=== PATIENT | male | born 1950 | race Hispanic/Latino ===

== ENCOUNTER → 2022-02-18 | Outpatient (CLI) | payer MEDICARE | END | disposition home or self-care (01) | LOC: RAH 09:16 | PROVIDERS: ATTEND Internal Medicine | DX: K74.60 Unspecified cirrhosis of liver (principal); I81 Portal vein thrombosis; R18.8 Other ascites; N28.89 Other specified disorders of kidney and ureter | CPT/HCPCS: 76700 ==

== ENCOUNTER 2022-03-01 10:24 | Inpatient (IN) | payer MEDICARE ==
[~2022-03-01] VITALS: Ht 157.5 cm; Wt 50.4 kg
[2022-03-01 10:52] LABS: BASOPHILS % (AUTO) 0.6 % (0.0-5.0); EOSINOPHILS % (AUTO) 1.6 % (0.0-8.0); HEMATOCRIT 29.7 % (42-54); MEAN CORPUSCULAR HEMOGLOBIN 31.5 pg (27.0-33.0); MONOCYTES % (AUTO) 7.4 % (3.0-13.0); NEUTROPHILS % (AUTO) 76.8 % (40.0-77.0); PLATELET COUNT (AUTO) 171 K/uL (130-400); RED CELL DISTRIBUTION WIDTH 13.6 % (11.0-15.5)
[2022-03-01 11:00] LABS: POTASSIUM 4.1 mmol/L (3.5-5.1)
[2022-03-01 11:02] LABS: INR 1.1 (0.85-1.15); PROTHROMBIN TIME 11.9 SEC (9.6-11.6)
[2022-03-01 11:05] LABS: ALBUMIN 2.3 g/dL (3.5-5.0); TOTAL PROTEIN, SERUM 6.7 g/dL (6.0-8.3)
[2022-03-01] MEDS ORDERED: 0.9% NACL 500ML IV.SOLN 500 ML IV ONE ×2 (12:00→15:30)
[2022-03-01 12:59] LABS: APPEARANCE,URINE CLEAR (CLEAR); BILIRUBIN,URINE NEGATIVE (NEGATIVE); COLOR,URINE YELLOW (YELLOW); GLUCOSE, URINE (UA) NEGATIVE (NEGATIVE); KETONES,URINE NEGATIVE (NEGATIVE); LEUKOCYTE ESTERASE ,URINE 75 Leu/uL (NEGATIVE); NITRATE,URINE NEGATIVE (NEGATIVE); OCCULT BLOOD,URINE NEGATIVE (NEGATIVE); PROTEIN,URINE 10 mg/dL (NEGATIVE); UROBILINOGEN,URINE 0.2 mg/dL (0.2-1.0)
[2022-03-01] MEDS ORDERED: CEFTRIAXONE 1G VIAL ONE (13:31)
[2022-03-01] MEDS ORDERED: CEFTRIAXONE 1G VIAL IVP ONE (14:00)
[2022-03-01 16:04] LABS: CREATININE 6.4 mg/dL (0.5-1.5)
[2022-03-01] MEDS ORDERED: CEFTRIAXONE 1G VIAL IVP SCH (20:30)
[2022-03-01] MEDS ORDERED: ONDANSETRON 4MG INJ IV PRN (20:30)
[2022-03-01 20:33] LABS: CREATININE,URINE RANDOM 116 mg/dL (30-135); SODIUM,URINE RANDOM < 14 mmol/l (40-220)
[2022-03-01] MEDS: FAMOTIDINE 20MG VIAL IV SCH (21:04)
[2022-03-01] MEDS: MIDODRINE HCL 5 MG TABLET PO SCH (21:04)
[2022-03-01 22:15] VITALS: BP 104/85
[2022-03-01] MEDS: ALBUMIN (HUMAN) 25% 50 ML IV SCH (23:15)
[2022-03-02] MEDS ORDERED: LACT10SO9 PO (02:54)
[2022-03-02 03:51] VITALS: BP 118/73
[2022-03-02] MEDS: ALBUMIN (HUMAN) 25% 50 ML IV SCH ×2 (05:54→14:20)
[2022-03-02 06:02] LABS: BASOPHILS % (AUTO) 0.8 % (0.0-5.0); EOSINOPHILS % (AUTO) 2.1 % (0.0-8.0); LYMPHOCYTES % (AUTO) 22.8 % (21.0-51.0); MEAN CORPUSCULAR HEMOGLOBIN 31.7 pg (27.0-33.0); MEAN CORPUSCULAR VOLUME 90.6 fL (79-99); MONOCYTES % (AUTO) 10.7 % (3.0-13.0); NEUTROPHILS % (AUTO) 63.3 % (40.0-77.0); PLATELET COUNT (AUTO) 173 K/uL (130-400); RED BLOOD CELL COUNT(AUTO) 2.87 MIL/uL (4.50-6.20); RED CELL DISTRIBUTION WIDTH 13.5 % (11.0-15.5); WHITE BLOOD COUNT (AUTO) 8.6 K/uL (4.8-10.8)
[2022-03-02 06:18] LABS: ALBUMIN 2.1 g/dL (3.5-5.0); TOTAL PROTEIN, SERUM 5.8 g/dL (6.0-8.3); URIC ACID 14.4 mg/dL (2.6-7.2)
[2022-03-02 08:00] VITALS: BP 91/64
[2022-03-02] MEDS: FAMOTIDINE 20MG VIAL IV SCH (09:21)
[2022-03-02] MEDS: MIDODRINE HCL 5 MG TABLET PO SCH ×2 (09:21→14:20)
[2022-03-02 11:53] VITALS: BP 102/66
[2022-03-02 16:00] VITALS: BP 97/64
== END 2022-03-02 19:10 | disposition home or self-care (01) | DRG 314 ==
LOC: EDH 10:24 → EDHIP 16:51 → OBSVTOIN 20:21 → 3BH 22:18
PROVIDERS: ADMIT Internal Medicine Nephrology; ATTEND Internal Medicine Nephrology
DX: I95.9 Hypotension, unspecified (principal); N18.6 End stage renal disease; N39.0 Urinary tract infection, site not specified; N17.9 Acute kidney failure, unspecified; E87.1 Hypo-osmolality and hyponatremia; E87.20 Acidosis, unspecified; K70.31 Alcoholic cirrhosis of liver with ascites; E86.0 Dehydration; D64.9 Anemia, unspecified; F10.10 Alcohol abuse, uncomplicated; Z51.5 Encounter for palliative care; Z91.199 Patient's noncompliance with other medical treatment and regimen due to unspecified reason
CPT/HCPCS: 36415; 76700; 80048; 80053; 81001; 82570; 83935; 84100; 84300; 84550; 85025; 85610; 85730; 87088; G0378; J0696; J3490; J7040; P9047